=== PATIENT | male | born 1960 | race Caucasian/White ===

== ENCOUNTER 2019-01-06 12:09 | Emergency (ER) | payer MEDICAID ==
[~2019-01-06] VITALS: Ht 182.9 cm; Wt 102.3 kg
[~2019-01-06 12:09] MED LIST: NO HOME MEDS
[2019-01-06 13:26] LABS: ALANINE AMINOTRANSFERASE 37 U/L (12-78); ALBUMIN 2.9 G/DL (3.4-5.0); ALKALINE PHOSPHATASE 77 IU/L (46-116); AMYLASE 46 U/L (25-115); ANION GAP 4 (8-16); ASPARTATE AMINO TRANSFERASE 60 U/L (10-37); BILIRUBIN,TOTAL 4.3 MG/DL (0.1-1.0); BLOOD UREA NITROGEN 9 MG/DL (7-18); BUN/CREATININE RATIO 10.1 (5.4-32.0); CALCIUM 8.7 MG/DL (8.5-10.1); CHLORIDE 100 MMOL/L (99-107); CREATININE 0.89 MG/DL (0.60-1.10); GLUCOSE 125 MG/DL (70-104); LIPASE 198 U/L (73-393); POTASSIUM 3.6 MMOL/L (3.5-5.1); SODIUM 136 MMOL/L (135-145); TOTAL CARBON DIOXIDE 31.6 MMOL/L (24-32); eGFR 87 ML/MIN
[2019-01-06 13:29] LABS: INR 1.4 INR; PROTHROMBIN TIME 13.6 SECONDS (9.0-12.0); TOTAL PROTEIN 5.9 G/DL (6.4-8.2)
[2019-01-06 13:35] LABS: BASOPHILS % (AUTO) 0.7 % (0-1); EOSINOPHILS # (AUTO) 0.1 X10'3 (0-0.9); EOSINOPHILS % (AUTO) 2.5 % (0-6); HEMATOCRIT 35.8 % (42.0-52.0); HEMOGLOBIN 12.5 g/dl (14.0-17.9); LYMPHOCYTES # (AUTO) 0.4 X10'3 (1.1-4.8); LYMPHOCYTES % (AUTO) 9.4 % (21-51); MEAN CORPUSCULAR HEMOGLOBIN 35.8 PG (27.0-31.0); MEAN CORPUSCULAR HGB CONC 35.1 g/dL (33.0-36.5); MEAN CORPUSCULAR VOLUME 102.1 FL (78-98); MEAN PLATELET VOLUME 7.3 FL (7.4-10.4); MONOCYTES # (AUTO) 0.4 X10'3 (0-0.9); MONOCYTES % (AUTO) 9.1 % (2-12); NEUTROPHILS # (AUTO) 3.1 X10'3 (1.8-7.7); NEUTROPHILS % (AUTO) 78.3 % (42-75); PLATELET COUNT 63 X10'3 (140-440); RED CELL DISTRIBUTION WIDTH 15.9 % (11.5-14.5)
[2019-01-06 14:10] LABS: ANISOCYTOSIS 1+; PLATELET ESTIMATE DECREASED
[2019-01-06] MEDS ORDERED: furosemide 10 MG/1 ML 10ml inj IV ONE (15:45)
[2019-01-06] MEDS ORDERED: SPIR25TA PO (16:09)
[2019-01-06] MEDS ORDERED: FURO-150 PO (16:09)
[2019-01-06 16:17] LABS: CLARITY,URINE CLEAR (Clear); COLOR,URINE AMBER (Yellow); GLUCOSE, URINE NEGATIVE (Neg); KETONES,URINE NEGATIVE (Neg); LEUKOCYTE ESTERASE ,URINE NEGATIVE (Neg); OCCULT BLOOD,URINE NEGATIVE (Neg); PH,URINE 5.5 (4.8-8.0); PROTEIN,URINE NEGATIVE (Neg); UA COLLECTION TYPE CLN CATCH MIDSTREAM
[2019-01-06 16:26] LABS: MUCUS STRANDS FEW /LPF (Neg); SQUAMOUS EPITHELIAL CELL,UR NONE SEEN /LPF (FEW)
[2019-01-06 16:30] LABS: BACTERIA,URINE FEW /HPF (Neg); WBC,URINE 0-4 /HPF (0-4)
[2019-01-06 16:31] LABS: RBC,URINE 0-2 /HPF (0-2)
[2019-01-06 16:33] LABS: HYALINE CASTS 0-3 /LPF (NEGATIVE)
[2019-01-06 16:38] VITALS: BP 142/92
== END 2019-01-06 16:41 | disposition home or self-care (01) ==
LOC: ER 12:10
DX: K74.60 Unspecified cirrhosis of liver (principal); B18.2 Chronic viral hepatitis C; R18.8 Other ascites; R06.02 Shortness of breath; Z79.899 Other long term (current) drug therapy
CPT/HCPCS: 36415; 80053; 81001; 82140; 82150; 83690; 85025; 85610; 96374; 99283; J1940

== ENCOUNTER 2019-01-22 07:51 | Day surgery (SDC) | payer MEDICAID ==
[~2019-01-22] VITALS: Ht 182.9 cm; Wt 97.7 kg
[2019-01-22] VITALS (10 sets, daily range): BP systolic 100–123; BP diastolic 57–82
[~2019-01-22 07:51] MED LIST changes: +FURO-150 PO; -NO HOME MEDS; +SPIR25TA PO
[2019-01-22] MEDS ORDERED: normal saline 1000ml 1,000 ML IV PRN (08:15)
[2019-01-22] MEDS ORDERED: LIDOcaine 1% 30ml preserv. free vial SQ ONE (09:00)
[2019-01-22] MEDS: albumin 25% 100mL bottle x 1 IV PRN ×2 (10:27→10:54)
[2019-01-22] MEDS ORDERED: heparin sodium, porcine/PF 100unit/ml 5ML syringe IV ONE (11:30)
== END 2019-01-22 11:50 | disposition home or self-care (01) ==
LOC: SSTAY O 07:51
PROVIDERS: ATTEND Radiology Vascular & Interventional Radiology
DX: R18.8 Other ascites (principal); K74.60 Unspecified cirrhosis of liver; Z79.899 Other long term (current) drug therapy; Z85.72 Personal history of non-Hodgkin lymphomas; Z86.19 Personal history of other infectious and parasitic diseases
CPT/HCPCS: 49083; C1729; J1642; J3490; J7030; P9047

== ENCOUNTER 2019-02-01 08:30 | Day surgery (SDC) | payer MEDICAID ==
[2019-02-01] VITALS (9 sets, daily range): BP systolic 97–114; BP diastolic 57–74
[~2019-02-01] VITALS: Ht 182.9 cm; Wt 86.5 kg
[~2019-02-01 08:30] MED LIST changes: +LIDOcaine 1% 30ml preserv. free vial SQ STA
[2019-02-01] MEDS ORDERED: normal saline 1000ml 1,000 ML IV PRN (08:55)
[2019-02-01] MEDS ORDERED: CALC-815 PO (09:09)
[2019-02-01] MEDS ORDERED: CHOL500049 PO (09:09)
[2019-02-01] MEDS: albumin 25% 100mL bottle x 1 IV PRN ×2 (11:05→11:37)
== END 2019-02-01 12:45 | disposition home or self-care (01) ==
LOC: SSTAY O 08:30
PROVIDERS: ATTEND Radiology Vascular & Interventional Radiology
DX: R18.8 Other ascites (principal); B19.20 Unspecified viral hepatitis C without hepatic coma; K76.9 Liver disease, unspecified; Z85.72 Personal history of non-Hodgkin lymphomas; Z72.89 Other problems related to lifestyle
CPT/HCPCS: 49083; C1729; J3490; P9047

== ENCOUNTER 2019-10-10 07:24 | Inpatient (IN) | payer MEDICAID ==
[2019-10-10] VITALS (9 sets, daily range): BP systolic 105–124; BP diastolic 58–72
[~2019-10-10] VITALS: Ht 180.3 cm; Wt 60.0 kg
[~2019-10-10 07:24] MED LIST changes: +CALC-815 PO; +CHOL500049 PO; -LIDOcaine 1% 30ml preserv. free vial SQ STA
[2019-10-10 08:15] LABS: BASOPHILS % (AUTO) 1.3 % (0-1); EOSINOPHILS # (AUTO) 0.1 X10'3 (0-0.9); HEMATOCRIT 24.8 % (42.0-52.0); HEMOGLOBIN 8.1 g/dl (14.0-17.9); LYMPHOCYTES # (AUTO) 0.3 X10'3 (1.1-4.8); MEAN CORPUSCULAR HEMOGLOBIN 24.6 PG (27.0-31.0); MEAN CORPUSCULAR HGB CONC 32.6 g/dL (33.0-36.5); MEAN CORPUSCULAR VOLUME 75.5 FL (78-98); MEAN PLATELET VOLUME 7.7 FL (7.4-10.4); MONOCYTES # (AUTO) 0.3 X10'3 (0-0.9); MONOCYTES % (AUTO) 11.6 % (2-12); NEUTROPHILS # (AUTO) 1.6 X10'3 (1.8-7.7); NEUTROPHILS % (AUTO) 70.1 % (42-75); RED BLOOD COUNT 3.28 X10'6 (4.70-6.10); RED CELL DISTRIBUTION WIDTH 17.8 % (11.5-14.5); WHITE BLOOD COUNT 2.3 X10'3 (4.5-11.0)
[2019-10-10 08:32] LABS: ALANINE AMINOTRANSFERASE 54 U/L (12-78); ALBUMIN 3.1 G/DL (3.4-5.0); ALBUMIN/GLOBULIN RATIO 1.1 (1.1-1.5); ALKALINE PHOSPHATASE 85 IU/L (46-116); ANION GAP 5 (8-16); ASPARTATE AMINO TRANSFERASE 45 U/L (10-37); BLOOD UREA NITROGEN 7 MG/DL (7-18); CALCIUM 8.2 MG/DL (8.5-10.1); CHLORIDE 94 MMOL/L (99-107); CREATININE 0.87 MG/DL (0.60-1.10); GLUCOSE 304 MG/DL (70-104); MAGNESIUM 1.6 MG/DL (1.5-2.4); POTASSIUM 3.9 MMOL/L (3.5-5.1); SODIUM 130 MMOL/L (135-145); TOTAL CARBON DIOXIDE 30.7 MMOL/L (24-32); eGFR 89 ML/MIN
[2019-10-10 08:38] LABS: PLATELET COUNT 50 X10'3 (140-440)
[2019-10-10 08:41] LABS: ANISOCYTOSIS 1+; HYPOCHROMASIA 1+; MICROCYTOSIS 1+; PLATELET ESTIMATE DECREASED; POIKILOCYTOSIS FEW; POLYCHROMASIA FEW; TOTAL CELLS COUNTED 100
[2019-10-10 08:44] LABS: CLARITY,URINE CLEAR (Clear); COLOR,URINE YELLOW (Yellow); GLUCOSE, URINE >=1000 mg/dl (Neg); KETONES,URINE NEGATIVE (Neg); LEUKOCYTE ESTERASE ,URINE NEGATIVE (Neg); NITRITES, URINE NEGATIVE (Neg); OCCULT BLOOD,URINE NEGATIVE (Neg); PROTEIN,URINE NEGATIVE (Neg)
[2019-10-10 08:50] LABS: UA COLLECTION TYPE URINAL
[2019-10-10 08:52] LABS: BACTERIA,URINE NONE SEEN /HPF (Neg); MUCUS STRANDS NONE SEEN /LPF (Neg); RBC,URINE NONE SEEN /HPF (0-2); SQUAMOUS EPITHELIAL CELL,UR NONE SEEN /LPF (FEW); WBC,URINE 0-4 /HPF (0-4)
[2019-10-10] MEDS ORDERED: insulin regular, human 10 units/0.1 ml syringe IV ONE (09:55)
[2019-10-10] MEDS ORDERED: CYCL-394 PO (11:03)
[2019-10-10] MEDS ORDERED: FURO40TA4 PO (11:03)
[2019-10-10] MEDS ORDERED: HYDR-3686 PO (11:03)
[2019-10-10] MEDS ORDERED: SPIR100T5 PO (11:03)
[2019-10-10] MEDS ORDERED: normal saline 1000ml 1,000 ML IV SCH (11:09)
[2019-10-10] MEDS ORDERED: potassium CL 10mEq/100ml bag 100 ML IV PRN ×2 (11:10)
[2019-10-10] MEDS ORDERED: dextrose ORAL solution 15 GM/59 ML bottle PO PRN ×2 (11:10)
[2019-10-10] MEDS ORDERED: dextrose 50%-water 50ml dispensing syringe IV PRN ×2 (11:10)
[2019-10-10] MEDS ORDERED: MESSAGE TO PHARMACY PO ONE (11:10)
[2019-10-10] MEDS ORDERED: insulin Lispro (HumaLOG) vial - multi-dose SQ SCH (11:10)
[2019-10-10] MEDS ORDERED: potassium Cl 20 mEq SR tablet PO PRN ×2 (11:10)
[2019-10-10] MEDS ORDERED: glucagon, human recombinant 1mg kit SUBCUT PRN (11:10)
[2019-10-10] MEDS ORDERED: magnesium 4gm in 100ml NS 100 ML IV PRN (11:10)
[2019-10-10] MEDS ORDERED: mag hydrox/Alum hydrox/simeth 30ml oral suspension PO PRN (11:10)
[2019-10-10] MEDS ORDERED: magnesium Cl slow-release 64mg tablet PO PRN (11:10)
[2019-10-10] MEDS ORDERED: magnesium 2GM in 50ml NS 50 ML IV PRN (11:10)
[2019-10-10] MEDS ORDERED: HYDROcodone/acetaminophen 5mg/325mg tablet PO PRN (11:10)
[2019-10-10] MEDS ORDERED: acetaminophen 325mg tablet PO PRN ×2 (11:10)
[2019-10-10] MEDS ORDERED: HYDROcodone/acetaminophen 10/325mg tab PO PRN (11:10)
[2019-10-10] MEDS ORDERED: ondansetron/PF 4mg/2ml inj IV PRN (11:10)
[2019-10-10] MEDS ORDERED: morphine 2 MG/ML inj. syringe IV PRN ×2 (11:10)
[2019-10-10 11:36] LABS: LIPASE 65 U/L (73-393)
[2019-10-10] MEDS ORDERED: hydrOXYzine 25 MG tablet PO PRN (11:40)
--- NOTE | 2019-10-10 16:08 | NUR ---
PAGED DR. URIOSTEGUI TO CLARIFY BLOOD ORDER "Re: new admit in 314, Robert Bernal. Order for 1 unit PRBC, blood irradiated and arrived [facility]. do you want it transfused? or save for need? H/H 8.1/24.8"
--- NOTE | 2019-10-10 17:55 | NUR ---
NO CONSENT FOR BLOOD YET PAGED DR. URIOSTEGUI "RE: [place], IN 314. PT HAS NOT SIGNED CONSENT FOR BLOOD, ARE YOU ABLE TO COME BY AND SIGN TOO? THANK YOU, TERRI HOLGUIN [phone]"
--- NOTE | 2019-10-10 19:01 | NUR ---
Patient in room MED 314. I have received report from Ella RN and had the opportunity to ask questions and assume patient care.
[2019-10-10] MEDS: K and/or MAG REPLACEMENT MC SCH (20:00)
[2019-10-10] MEDS: pantoprazole 40mg Tablet.DR PO SCH (20:49)
[2019-10-10] MEDS: docusate sod 100mg capsule PO SCH (20:49)
[2019-10-10] MEDS ORDERED: insulin glargine (Lantus) pen - multi-dose SQ SCH (21:00)
[2019-10-10] MEDS ORDERED: temazepam 15mg capsule PO PRN (21:00)
[2019-10-10 21:09] LABS: URINE AMPHETAMINE SCREEN NEGATIVE (Neg); URINE BARBITUATE SCREEN NEGATIVE (Neg); URINE BENZODIAZEPINES SCREEN NEGATIVE (Neg); URINE CANNABINOID SCREEN POSITIVE (Neg); URINE COCAINE SCREEN NEGATIVE (Neg); URINE METHADONE SCREEN NEGATIVE (Neg); URINE OPIATE SCREEN NEGATIVE (Neg); URINE PHENCYCLIDINE SCREEN NEGATIVE (Neg)
[2019-10-11 02:00] VITALS: BP 102/66
[2019-10-11 06:12] LABS: BASOPHILS % (AUTO) 0.9 % (0-1); EOSINOPHILS # (AUTO) 0.1 X10'3 (0-0.9); EOSINOPHILS % (AUTO) 4.7 % (0-6); HEMATOCRIT 24.8 % (42.0-52.0); HEMOGLOBIN 8.3 g/dl (14.0-17.9); LYMPHOCYTES # (AUTO) 0.3 X10'3 (1.1-4.8); MEAN CORPUSCULAR HEMOGLOBIN 25.4 PG (27.0-31.0); MEAN CORPUSCULAR HGB CONC 33.4 g/dL (33.0-36.5); MEAN CORPUSCULAR VOLUME 76.2 FL (78-98); MEAN PLATELET VOLUME 8.2 FL (7.4-10.4); MONOCYTES # (AUTO) 0.3 X10'3 (0-0.9); MONOCYTES % (AUTO) 12.8 % (2-12); NEUTROPHILS # (AUTO) 1.3 X10'3 (1.8-7.7); NEUTROPHILS % (AUTO) 65.6 % (42-75); RED BLOOD COUNT 3.25 X10'6 (4.70-6.10); RED CELL DISTRIBUTION WIDTH 18.3 % (11.5-14.5)
--- NOTE | 2019-10-11 06:20 | NUR ---
Problems reprioritized. Patient report given, questions answered & plan of care reviewed with Pat RN.
[2019-10-11 06:24] LABS: ALANINE AMINOTRANSFERASE 51 U/L (12-78); ALBUMIN 2.7 G/DL (3.4-5.0); ALBUMIN/GLOBULIN RATIO 1.1 (1.1-1.5); ALKALINE PHOSPHATASE 70 IU/L (46-116); ANION GAP 4 (8-16); ASPARTATE AMINO TRANSFERASE 52 U/L (10-37); BILIRUBIN,TOTAL 2.2 MG/DL (0.1-1.0); BLOOD UREA NITROGEN 7 MG/DL (7-18); BUN/CREATININE RATIO 9.5 (5.4-32.0); CHLORIDE 98 MMOL/L (99-107); CREATININE 0.74 MG/DL (0.60-1.10); GLUCOSE 99 MG/DL (70-104); MAGNESIUM 1.5 MG/DL (1.5-2.4); POTASSIUM 3.7 MMOL/L (3.5-5.1); SODIUM 134 MMOL/L (135-145); TOTAL CARBON DIOXIDE 32.2 MMOL/L (24-32); TOTAL PROTEIN 5.2 G/DL (6.4-8.2); eGFR > 90 ML/MIN
[2019-10-11 06:30] VITALS: BP 98/56
[2019-10-11 06:40] LABS: PLATELET COUNT 43 X10'3 (140-440)
[2019-10-11 07:35] LABS: TOTAL CELLS COUNTED 100
[2019-10-11 07:36] LABS: ANISOCYTOSIS 2+; MICROCYTOSIS 1+; PLATELET ESTIMATE DECREASED
[2019-10-11 07:37] LABS: HYPOCHROMASIA 1+; POLYCHROMASIA FEW
[2019-10-11] MEDS: spironolactone 25 MG tablet PO SCH (08:00)
[2019-10-11] MEDS: pantoprazole 40mg Tablet.DR PO SCH (08:00)
[2019-10-11] MEDS: docusate sod 100mg capsule PO SCH (08:00)
[2019-10-11] MEDS: K and/or MAG REPLACEMENT MC SCH (08:00)
[2019-10-11] MEDS ORDERED: furosemide 40mg tablet PO SCH (08:00)
--- NOTE | 2019-10-11 09:08 | NUR ---
PATIENT REMOVED HIS HEART MONITOR , AND IS UP IN SHOWER. PATIENT DID NOT NOTIFY STAFF OF HIS PLAN. YESTERDAY PATIENT UP IN SHOWER WITHOUT NOTIFYING STAFF, AND AT THAT TIME EDUCATED PATIENT ON NEED TO TELL STAFF OF PLAN PRIOR TO SHOWER, REMOVAL OF HEART MONITOR AND WITH THE NEED TO WRAP HIS IV SITE. Addendum: 10/11/19 at 0922 by Danyelle Donahue RN Amended: Links added.
[2019-10-11] MEDS ORDERED: FLU VACC QS2019-20 36MOS UP/PF 60 MCG/0.5 ML SYRINGE IMVAC ONE (10:00)
[2019-10-11 11:00] VITALS: BP 144/73
[2019-10-11] MEDS ORDERED: PANT-47 PO (11:26)
--- NOTE | 2019-10-11 11:36 | NUR ---
PATIENT OUT OF HIS ROOM STATES "HE IS JUST GOING FOR SHORT WALK, WILL BE BACK." PATIENT DISCHARGED BY DR. BERRY; HOWEVER, UNABLE TO PROCESS DISCHARGE UNTIL PATIENT RETURNS TO ROOM. Addendum: 10/11/19 at 1143 by Danyelle Donahue RN Amended: Links added.
--- NOTE | 2019-10-11 14:20 | NUR ---
DM Consult: Pt newly DX DM A1C 10.0. Pt not present during RD visit; had already taken gown off and walking around in normal clothes per RN but RD unable to find pt on floor. Written DM ed w/ RD contact information and CDE course information left at pt bedside. Addendum: 10/11/19 at [address] Amended: Links added.
== END 2019-10-11 13:30 | disposition home or self-care (01) | DRG 663 ==
LOC: ER 07:25 → ED HOLD 11:09 → OBSVTOIN 11:09 → MED 3N 13:15
PROVIDERS: ADMIT Internal Medicine; ATTEND Family Medicine
PROC: 30233N1 Transfusion of Nonautologous Red Blood Cells into Peripheral Vein, Percutaneous Approach (ICD-10-PCS; principal; 2019-10-10)
PROC: 3E02340 Introduction of Influenza Vaccine into Muscle, Percutaneous Approach (ICD-10-PCS; 2019-10-11)
DX: D53.9 Nutritional anemia, unspecified (principal); C85.10 Unspecified B-cell lymphoma, unspecified site; D69.6 Thrombocytopenia, unspecified; E87.1 Hypo-osmolality and hyponatremia; R18.8 Other ascites; B18.2 Chronic viral hepatitis C; K76.9 Liver disease, unspecified; F12.90 Cannabis use, unspecified, uncomplicated; R73.9 Hyperglycemia, unspecified; K74.60 Unspecified cirrhosis of liver; Z72.0 Tobacco use; Z92.21 Personal history of antineoplastic chemotherapy; Z23 Encounter for immunization
CPT/HCPCS: 36415; 71045; 80053; 80305; 81001; 82948; 83036; 83690; 83735; 84484; 85025; 86885; 86900; 86901; 86920; 86945; 87081; 93005; GO378; J1815; P9016

== ENCOUNTER 2020-02-04 14:20 | Inpatient (IN) | payer MEDICAID ==
[~2020-02-04] VITALS: Ht 182.9 cm; Wt 72.7 kg
[~2020-02-04 14:20] MED LIST changes: -CALC-815 PO; -CHOL500049 PO; +CYCL-394 PO; -FURO-150 PO; +FURO40TA4 PO; +HYDR-3686 PO; +PANT-47 PO; +SPIR100T5 PO; -SPIR25TA PO
[2020-02-04 14:53] LABS: BASOPHILS % (AUTO) 0.6 % (0-1); EOSINOPHILS # (AUTO) 0.1 X10'3 (0-0.9); EOSINOPHILS % (AUTO) 2.4 % (0-6); HEMATOCRIT 31.3 % (42.0-52.0); HEMOGLOBIN 10.1 g/dl (14.0-17.9); LYMPHOCYTES # (AUTO) 0.4 X10'3 (1.1-4.8); LYMPHOCYTES % (AUTO) 11.2 % (21-51); MEAN CORPUSCULAR HEMOGLOBIN 25.6 PG (27.0-31.0); MEAN CORPUSCULAR HGB CONC 32.4 g/dL (33.0-36.5); MEAN CORPUSCULAR VOLUME 79.2 FL (78-98); MEAN PLATELET VOLUME 8.2 FL (7.4-10.4); MONOCYTES # (AUTO) 0.3 X10'3 (0-0.9); MONOCYTES % (AUTO) 9.1 % (2-12); NEUTROPHILS # (AUTO) 2.6 X10'3 (1.8-7.7); NEUTROPHILS % (AUTO) 76.7 % (42-75); PLATELET COUNT 53 X10'3 (140-440); RED BLOOD COUNT 3.95 X10'6 (4.70-6.10); RED CELL DISTRIBUTION WIDTH 21.5 % (11.5-14.5); WHITE BLOOD COUNT 3.4 X10'3 (4.5-11.0)
[2020-02-04 15:06] LABS: PARTIAL THROMBOPLASTIN TIME 30 SECONDS (22-32)
[2020-02-04 15:09] LABS: ALANINE AMINOTRANSFERASE 65 U/L (12-78); ALBUMIN 3.4 G/DL (3.4-5.0); ALBUMIN/GLOBULIN RATIO 1.2 (1.1-1.5); ALKALINE PHOSPHATASE 69 IU/L (46-116); ANION GAP 7 (8-16); ASPARTATE AMINO TRANSFERASE 81 U/L (10-37); BILIRUBIN,TOTAL 0.8 MG/DL (0.1-1.0); BLOOD UREA NITROGEN 23 MG/DL (7-18); BUN/CREATININE RATIO 23.2 (5.4-32.0); CALCIUM 8.2 MG/DL (8.5-10.1); CHLORIDE 100 MMOL/L (99-107); CREATININE 0.99 MG/DL (0.60-1.10); GLUCOSE 268 MG/DL (70-104); POTASSIUM 4.2 MMOL/L (3.5-5.1); SODIUM 131 MMOL/L (135-145); TOTAL CARBON DIOXIDE 24.2 MMOL/L (24-32); TOTAL PROTEIN 6.3 G/DL (6.4-8.2); eGFR 77 ML/MIN
[2020-02-04 15:41] LABS: ANISOCYTOSIS 3+; HYPOCHROMASIA 1+; MICROCYTOSIS 1+; PLATELET ESTIMATE DECREASED; POLYCHROMASIA FEW; TEAR DROP CELLS FEW
[2020-02-04 16:02] LABS: CLARITY,URINE CLEAR (Clear); COLOR,URINE YELLOW (Yellow); GLUCOSE, URINE 500 mg/dl (Neg); KETONES,URINE NEGATIVE (Neg); LEUKOCYTE ESTERASE ,URINE NEGATIVE (Neg); NITRITES, URINE NEGATIVE (Neg); OCCULT BLOOD,URINE NEGATIVE (Neg); PH,URINE 6.5 (4.8-8.0); PROTEIN,URINE NEGATIVE (Neg); UROBILINOGEN,URINE 0.2 E.U/dL (0.2-1.0)
[2020-02-04 16:03] LABS: LIPASE 127 U/L (73-393)
[2020-02-04 16:05] LABS: UA COLLECTION TYPE CLN CATCH MIDSTREAM
[2020-02-04] MEDS ORDERED: pantoprazole 40 MG vial IV ONE (16:10)
[2020-02-04] MEDS ORDERED: pantoprazole 40mg Tablet.DR PO ONE (16:10)
[2020-02-04] MEDS ORDERED: normal saline 1000ml 1,000 ML IV ONE (16:10)
[2020-02-04] MEDS: normal saline 1000ml 1,000 ML IV SCH (16:24)
[2020-02-04] MEDS ORDERED: HYDROcodone/acetaminophen 10/325mg tab PO PRN (16:25)
[2020-02-04] MEDS ORDERED: morphine 2 MG/ML inj. syringe IV PRN ×2 (16:25)
[2020-02-04] MEDS ORDERED: HYDROcodone/acetaminophen 5mg/325mg tablet PO PRN (16:25)
[2020-02-04] MEDS ORDERED: acetaminophen 325mg tablet PO PRN ×2 (16:25)
[2020-02-04] MEDS ORDERED: mag hydrox/Alum hydrox/simeth 30ml oral suspension PO PRN (16:25)
[2020-02-04] MEDS ORDERED: magnesium hydroxide 30ml (MOM) UD suspension PO PRN (16:25)
[2020-02-04] MEDS ORDERED: ondansetron/PF 4mg/2ml inj IV PRN (16:25)
--- NOTE | 2020-02-04 17:24 | NUR ---
called report to PCU
--- NOTE | 2020-02-04 17:45 | NUR ---
Received report from WAGNER Deras. Pt arrived on unit stable by WAGNER Woods via [facility]. Tele monitor placed. Oriented pt to room and call light button. 2 RN skin check completed. VS: 127/[id number]%-97.9-18
[2020-02-04 18:12] VITALS: BP 127/61
--- NOTE | 2020-02-04 18:22 | NUR ---
Problems reprioritized. Patient report given, questions answered & plan of care reviewed with WAGNER Farias.
[2020-02-04] MEDS ORDERED: dextrose ORAL solution 15 GM/59 ML bottle PO PRN ×2 (18:40)
[2020-02-04] MEDS ORDERED: glucagon, human recombinant 1mg kit SUBCUT PRN (18:40)
[2020-02-04] MEDS ORDERED: MESSAGE TO PHARMACY PO ONE (18:40)
[2020-02-04] MEDS ORDERED: insulin Lispro (HumaLOG) vial - multi-dose SQ SCH (18:40)
[2020-02-04] MEDS ORDERED: dextrose 50%-water 50ml dispensing syringe IV PRN ×2 (18:40)
--- NOTE | 2020-02-04 18:46 | NUR ---
Patient in room PCU 3014B. I have received report from Brooke EDWARD and had the opportunity to ask questions and assume patient care.
[2020-02-04 20:00] VITALS: BP_SYST 102; BP_SYST 106; BP_SYST 98; BP_DIAS 42; BP_DIAS 58; BP_DIAS 59
[2020-02-04] MEDS ORDERED: insulin glargine (Lantus) pen - multi-dose SQ SCH (21:00)
[2020-02-04 22:00] VITALS: BP 110/54
[2020-02-05] VITALS (10 sets, daily range): BP systolic 112–134; BP diastolic 45–77
[2020-02-05] MEDS: normal saline 1000ml 1,000 ML IV SCH (02:24)
--- NOTE | 2020-02-05 06:09 | NUR ---
Patient in room PCU 3014. I have received report from Jarrett EDWARD and had the opportunity to ask questions and assume patient care.
[2020-02-05 06:16] LABS: BASOPHILS % (AUTO) 1.6 % (0-1); EOSINOPHILS # (AUTO) 0.1 X10'3 (0-0.9); EOSINOPHILS % (AUTO) 5.3 % (0-6); HEMATOCRIT 26.6 % (42.0-52.0); HEMOGLOBIN 8.7 g/dl (14.0-17.9); LYMPHOCYTES # (AUTO) 0.4 X10'3 (1.1-4.8); LYMPHOCYTES % (AUTO) 16.1 % (21-51); MEAN CORPUSCULAR HEMOGLOBIN 25.5 PG (27.0-31.0); MEAN CORPUSCULAR HGB CONC 32.8 g/dL (33.0-36.5); MEAN CORPUSCULAR VOLUME 77.7 FL (78-98); MEAN PLATELET VOLUME 8.3 FL (7.4-10.4); MONOCYTES # (AUTO) 0.3 X10'3 (0-0.9); MONOCYTES % (AUTO) 13.4 % (2-12); NEUTROPHILS # (AUTO) 1.5 X10'3 (1.8-7.7); NEUTROPHILS % (AUTO) 63.6 % (42-75); RED BLOOD COUNT 3.42 X10'6 (4.70-6.10); RED CELL DISTRIBUTION WIDTH 21.4 % (11.5-14.5); WHITE BLOOD COUNT 2.4 X10'3 (4.5-11.0)
[2020-02-05 06:23] LABS: PLATELET COUNT 43 X10'3 (140-440)
[2020-02-05 06:41] LABS: TOTAL CELLS COUNTED 100
[2020-02-05 06:42] LABS: ANISOCYTOSIS 3+; HYPOCHROMASIA 1+; MICROCYTOSIS 1+; PLATELET ESTIMATE DECREASED; POIKILOCYTOSIS FEW
[2020-02-05 06:43] LABS: ALANINE AMINOTRANSFERASE 62 U/L (12-78); ALBUMIN 3.1 G/DL (3.4-5.0); ALBUMIN/GLOBULIN RATIO 1.2 (1.1-1.5); ALKALINE PHOSPHATASE 54 IU/L (46-116); ANION GAP 5 (8-16); ASPARTATE AMINO TRANSFERASE 74 U/L (10-37); BILIRUBIN,TOTAL 0.8 MG/DL (0.1-1.0); BLOOD UREA NITROGEN 18 MG/DL (7-18); BUN/CREATININE RATIO 22.2 (5.4-32.0); CALCIUM 8.3 MG/DL (8.5-10.1); CHLORIDE 104 MMOL/L (99-107); CREATININE 0.81 MG/DL (0.60-1.10); GLUCOSE 133 MG/DL (70-104); POTASSIUM 4.1 MMOL/L (3.5-5.1); SODIUM 135 MMOL/L (135-145); TOTAL CARBON DIOXIDE 25.6 MMOL/L (24-32); TOTAL PROTEIN 5.7 G/DL (6.4-8.2); eGFR > 90 ML/MIN
--- NOTE | 2020-02-05 06:55 | NUR ---
Problems reprioritized. Patient report given, questions answered & plan of care reviewed with Brett EDWARD.
--- NOTE | 2020-02-05 07:07 | NUR ---
paged Robert Norman. [id number]. FYI patients Plt were 43. Brett [phone]
[2020-02-05] MEDS ORDERED: LIDOcaine Viscous 15ml cup ONE (08:15)
[2020-02-05] MEDS ORDERED: fentaNYL/PF 50MCG/1 ML 2ML syringe ONE ×2 (08:15→09:30)
[2020-02-05] MEDS ORDERED: MIDAZolam 5mg/5ml vial ONE ×2 (08:15→09:31)
[2020-02-05] MEDS ORDERED: pantoprazole 40MG/NS 100ML BAG 100 ML IV SCH (11:50)
--- NOTE | 2020-02-05 12:02 | NUR ---
PAGER ID: [phone] MESSAGE: [phone] HANNAH IS LEAVING [facility] [phone]
--- NOTE | 2020-02-05 12:06 | NUR ---
I SPOKE TO [employer]MENT TECHNICIAN VENTURA EDWARD. I INFORMED HER THAT PT WAS GOING TO LEAVE AMA. HE WAS GIVEN FENTANYL AND VERSED IN GI LAB THIS A.M @ APROX 0900. I CALLED [facility] TO ROOM PT WOULD NOT BE PERSUADED TO STAY FOR ANOTHER HOUR FOR ANY POTENTIAL SIDE EFFECTS OF MEDICATION TO WEAR OFF. [employer] E[employer] TECHNICIAN CONTACTED GI LAB. THEY STATED THAT PT WAS AT HIS BASELINE WHEN HE WAS RETURNED TO FLOOR. [employer] E[employer] TECHNICIAN INSTRUCTED ME TO HAVE PT SIGN AMA FORM AND LET PT GO WITHOUT [facility] INVOLVEMENT. PIV REMOVED, CANNULA INTACT. PT PACKED ALL BELONGINGS INCLUDING WATCH AND SATCHEL. PT LEFT BUILDING.
--- NOTE | 2020-02-05 12:19 | NUR ---
patient off unit AMA 1201
--- NOTE | 2020-02-05 13:21 | NUR ---
Cardiac consult: Likely meant to be a DM consult as pt with T2DM with current A1c 10.0% and no documented heart related hx or lipid panel drawn. Pt left AMA prior to RD being available for bedside visit. Written DM education with referral to outpatient CDE course mailed to patient's home address found in EMR. Addendum: 02/05/20 at [address] Amended: Links added.
== END 2020-02-05 12:20 | disposition left against medical advice (07) | DRG 280 ==
LOC: ER 14:20 → ED HOLD 16:24 → PCU 3S 17:38
PROVIDERS: ADMIT Internal Medicine; ATTEND Internal Medicine
PROC: 06L38CZ Occlusion of Esophageal Vein with Extraluminal Device, Via Natural or Artificial Opening Endoscopic (ICD-10-PCS; principal; 2020-02-05)
PROC: 0DB68ZX Excision of Stomach, Via Natural or Artificial Opening Endoscopic, Diagnostic (ICD-10-PCS; 2020-02-05)
DX: K70.30 Alcoholic cirrhosis of liver without ascites (principal); I85.11 Secondary esophageal varices with bleeding; D61.818 Other pancytopenia; N18.6 End stage renal disease; D62 Acute posthemorrhagic anemia; E87.1 Hypo-osmolality and hyponatremia; B19.20 Unspecified viral hepatitis C without hepatic coma; F12.90 Cannabis use, unspecified, uncomplicated; F17.210 Nicotine dependence, cigarettes, uncomplicated; Z85.72 Personal history of non-Hodgkin lymphomas; Z53.29 Procedure and treatment not carried out because of patient's decision for other reasons
CPT/HCPCS: 36415; 43239; 43244; 71045; 80053; 81003; 82140; 82948; 83036; 83690; 83880; 85025; 85610; 85730; 87081; 93005; 99152; 99285; A4620; C9113; G0378; J1815; J2250; J3010; J7030; J7040

== ENCOUNTER 2020-02-22 19:28 | Emergency (ER) | payer MEDICAID ==
[~2020-02-22] VITALS: Ht 182.9 cm; Wt 77.5 kg
--- NOTE | 2020-02-22 19:45 | NUR ---
PT STATES HE HAD A PROCEURE 13 DAYS AGO AND WE "TOOK HIS MEDICATIONS TO THE PHARMACY AND I DIDNT KNOW I HAD TO GET THEM BACK FROM HERE SO I JUST GOT THEM TODAY BUT I HAVENT HAD MY WATER PILLS FOR 13 DAYS."
[2020-02-22 20:34] LABS: BASOPHILS % (AUTO) 1.4 % (0-1); EOSINOPHILS # (AUTO) 0.1 X10'3 (0-0.9); EOSINOPHILS % (AUTO) 4.7 % (0-6); HEMATOCRIT 25.5 % (42.0-52.0); HEMOGLOBIN 8.2 g/dl (14.0-17.9); LYMPHOCYTES # (AUTO) 0.4 X10'3 (1.1-4.8); LYMPHOCYTES % (AUTO) 15.7 % (21-51); MEAN CORPUSCULAR HEMOGLOBIN 24.4 PG (27.0-31.0); MEAN CORPUSCULAR HGB CONC 32.2 g/dL (33.0-36.5); MEAN CORPUSCULAR VOLUME 75.8 FL (78-98); MEAN PLATELET VOLUME 8.4 FL (7.4-10.4); MONOCYTES # (AUTO) 0.3 X10'3 (0-0.9); MONOCYTES % (AUTO) 13.1 % (2-12); NEUTROPHILS # (AUTO) 1.7 X10'3 (1.8-7.7); NEUTROPHILS % (AUTO) 65.1 % (42-75); PLATELET COUNT 57 X10'3 (140-440); RED BLOOD COUNT 3.37 X10'6 (4.70-6.10); RED CELL DISTRIBUTION WIDTH 20.8 % (11.5-14.5); WHITE BLOOD COUNT 2.6 X10'3 (4.5-11.0)
[2020-02-22 20:35] LABS: ALANINE AMINOTRANSFERASE 41 U/L (12-78); ALBUMIN 3.3 G/DL (3.4-5.0); ALKALINE PHOSPHATASE 66 IU/L (46-116); ANION GAP 5 (8-16); ASPARTATE AMINO TRANSFERASE 45 U/L (10-37); BILIRUBIN,TOTAL 0.9 MG/DL (0.1-1.0); BLOOD UREA NITROGEN 6 MG/DL (7-18); BUN/CREATININE RATIO 6.1 (5.4-32.0); CALCIUM 8.5 MG/DL (8.5-10.1); CHLORIDE 104 MMOL/L (99-107); CREATININE 0.98 MG/DL (0.60-1.10); GLUCOSE 130 MG/DL (70-104); LIPASE 66 U/L (73-393); POTASSIUM 3.3 MMOL/L (3.5-5.1); SODIUM 139 MMOL/L (135-145); TOTAL CARBON DIOXIDE 29.7 MMOL/L (24-32); TOTAL PROTEIN 6.5 G/DL (6.4-8.2); eGFR 78 ML/MIN
[2020-02-22 21:00] LABS: ANISOCYTOSIS 2+; PLATELET ESTIMATE DECREASED; TOTAL CELLS COUNTED 100
[2020-02-22 21:01] LABS: HYPOCHROMASIA 1+; MICROCYTOSIS 1+
[2020-02-22 21:02] LABS: TOXIC GRANULATION 2+
[2020-02-22 21:08] VITALS: BP 128/72
== END 2020-02-22 21:10 | disposition home or self-care (01) ==
LOC: ER 19:28
DX: R18.8 Other ascites (principal); Z79.899 Other long term (current) drug therapy
CPT/HCPCS: 36415; 49083; 80053; 83690; 85025; 99284